=== PATIENT | male | born 1965 | race African-American/Black ===

== ENCOUNTER 2018-07-21 19:54 | Emergency (ER) | payer SELFPAY ==
[~2018-07-21] VITALS: Ht 188 cm; Wt 71.7 kg
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
[2018-07-21] MEDS ORDERED: Tetanus/Diptheria/Pertussis IM ONE (20:15)
[2018-07-21] MEDS ORDERED: ACETAMINOPHEN-1 EAC1 ORAL (20:16)
[2018-07-21] MEDS ORDERED: SILVADENE20 GM TP (20:16)
--- NOTE | 2018-07-21 21:23 | NUR ---
ED Nurse Note: Pt has seen by Dr. Morales, Dressing applied and Tetanus given. Pt is ready for discharged. Discharge instruction and prescription given to pt and verbalized understanding. ID band removed. Pt discharge from ED with steady gait. Accompanied by his family.
[2018-07-21 22:21] VITALS: BP 154/93
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
== END 2018-07-21 22:45 | disposition home or self-care (01) ==
LOC: EMR 20:17
DX: T22.211A Burn of second degree of right forearm, initial encounter (principal); T31.0 Burns involving less than 10% of body surface; X16.XXXA Contact with hot heating appliances, radiators and pipes, initial encounter; Y92.9 Unspecified place or not applicable; Z23 Encounter for immunization
CPT/HCPCS: 90471; 90715; 99283